=== PATIENT | male | born 1975 | race Caucasian/White ===

== ENCOUNTER 2019-12-06 21:16 | Emergency (ER) | payer OTHER ==
[~2019-12-06] VITALS: Ht 185.4 cm; Wt 121.5 kg
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
[2019-12-06] MEDS ORDERED: GERD med (21:42)
[2019-12-06] MEDS ORDERED: BP med (21:42)
[2019-12-06] MEDS ORDERED: DIPH,PERTUSS(ACELL),TET VAC/PF 0.5 ML SYRINGE. VAX IM ONE ×2 (21:48→23:00)
[2019-12-06] MEDS ORDERED: BACITRACIN ZINC TOPICAL OINT PACKET. TP ONE ×3 (22:00)
[2019-12-06] MEDS ORDERED: LIDOCAINE 2%/EPI 1:100,000 20 ML VIAL. IJ ONE (22:00)
[2019-12-06] MEDS ORDERED: IV RINGERS SOLUTION,LACTATED 1,000 ML IV SCH (22:00)
[2019-12-06] MEDS ORDERED: LIDOCAINE 2% 20 ML VIAL. IJ ONE (22:00)
[2019-12-06] MEDS ORDERED: THIAMINE 200 MG/2 ML VIAL. IV ONE (22:09)
[2019-12-06] MEDS ORDERED: MVI, ADULT NO.4 WITH VIT K 10 ML VIAL IV ONE (22:09)
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
[2019-12-06] MEDS ORDERED: MVI, ADULT NO.4 WITH VIT K 10 ML, THIAMINE INJ 100 MG in IV RINGERS SOLUTION,LACTATED 1... IV ONE (22:30)
[2019-12-06] MEDS ORDERED: cefTRIAXone SODIUM 1 GM VIAL ONE (22:38)
[2019-12-06] MEDS ORDERED: CEPH-264 PO (22:44)
[2019-12-06] MEDS ORDERED: HYDR-1179 PO (22:44)
[2019-12-06] MEDS ORDERED: BACI1PAC16 TP (22:44)
[2019-12-06 22:45] VITALS: BP 140/90
[2019-12-06] MEDS ORDERED: cefTRIAXone IM 1 GM VIAL IM ONE (23:00)
== END 2019-12-06 22:49 | disposition home or self-care (01) ==
LOC: ER 21:16 → EDBD 21:16 → ER 22:49
DX: S81.812A Laceration without foreign body, left lower leg, initial encounter (principal); S70.12XA Contusion of left thigh, initial encounter; S20.211A Contusion of right front wall of thorax, initial encounter; K21.9 Gastro-esophageal reflux disease without esophagitis; I10 Essential (primary) hypertension; V49.49XA Driver injured in collision with other motor vehicles in traffic accident, initial encounter; Y93.89 Activity, other specified; Y92.89 Other specified places as the place of occurrence of the external cause; Y99.8 Other external cause status
CPT/HCPCS: 12002; 71046; 73590; 90471; 90715; 96372; 99284; J0696